=== PATIENT | female | born 1930 | race Caucasian/White ===

== ENCOUNTER 2016-08-23 14:48 | Inpatient (IN) | payer MEDICAID, OTHER ==
[~2016-08-23] VITALS: Ht 162.6 cm; Wt 65.4 kg
[2016-08-23] MEDS ORDERED: ASPI-556 PO (15:11)
[2016-08-23] MEDS ORDERED: AMLO-512 PO (15:11)
[2016-08-23] MEDS ORDERED: METF850T2 PO (15:11)
[2016-08-23] MEDS ORDERED: METO50 PO (15:11)
[2016-08-23] MEDS ORDERED: FOLI1TAB15 PO (15:11)
[2016-08-23] MEDS ORDERED: INSLAN SQ (15:11)
[2016-08-23] MEDS ORDERED: CLOP75 PO (15:11)
[2016-08-23] MEDS ORDERED: INSNOV SQ (15:11)
[2016-08-23] MEDS ORDERED: OMEP20 PO (15:11)
[2016-08-23] MEDS ORDERED: FURO20 PO (15:11)
[2016-08-23] MEDS ORDERED: BENZ-26 PO (15:11)
[2016-08-23] MEDS ORDERED: NITR.4 SL (15:11)
[2016-08-23] MEDS ORDERED: GLIP5 PO (15:11)
[2016-08-23] MEDS ORDERED: LOSA50TA37 PO (15:11)
[2016-08-23] MEDS ORDERED: SIMV-260 PO (15:11)
[2016-08-23 15:33] LABS: BASOPHILS % (AUTO) 0.5 % (0.0-2.0); EOSINOPHILS % (AUTO) 1.7 % (1.0-6.0); HEMATOCRIT 35.2 % (36-46); HEMOGLOBIN 11.9 g/dL (12.0-16.0); LYMPHOCYTES # (AUTO) 1.6 K/uL (1.0-4.8); MEAN CORPUSCULAR HEMOGLOBIN 32.8 pg (26.0-34.0); MEAN CORPUSCULAR HGB CONC 33.7 G/dL (31.0-37.0); MEAN CORPUSCULAR VOLUME 97 fL (80-100); MONOCYTES # (AUTO) 0.5 K/uL (0.1-1.0); NEUTROPHILS # (AUTO) 4.2 K/uL (1.8-7.7); NEUTROPHILS % (AUTO) 64.8 % (40.0-70.0); PLATELET COUNT (AUTO) 210 K/uL (150-450); RED BLOOD CELL COUNT(AUTO) 3.62 MIL/uL (4.00-5.20); RED CELL DISTRIBUTION WIDTH 13.8 % (11.5-14.5); WHITE BLOOD COUNT (AUTO) 6.4 K/uL (4.5-11.0)
[2016-08-23 15:51] LABS: CALCIUM, TOTAL 9.5 mg/dL (8.8-10.5); CREATININE 0.97 mg/dL (0.60-1.30); POTASSIUM 4.1 mmol/L (3.5-5.1)
[2016-08-23 15:56] LABS: ALBUMIN 3.7 g/dL (3.4-5.0); BILIRUBIN,TOTAL 0.3 mg/dL (0.1-1.0); THYROID STIMULATING HORMONE 3.42 uIU/mL (0.36-3.74); TOTAL PROTEIN, SERUM 7.4 g/dL (6.4-8.2)
[2016-08-23] MEDS ORDERED: ZOLPIDEM TARTRATE 5 MG TABLET PO PRN (16:45)
[2016-08-23] MEDS ORDERED: BISACODYL 10 MG RECTAL RECTAL SUPPOSITORY PR PRN (16:45)
[2016-08-23] MEDS ORDERED: ACETAMINOPHEN 325 MG TABLET PO PRN ×2 (16:45)
[2016-08-23] MEDS ORDERED: HYDROCODONE/ACETAMINOPHEN 5-325 MG TABLET PO PRN (16:45)
[2016-08-23] MEDS ORDERED: MAGNESIUM HYDROXIDE SUSPENSION 30 ML UDCUP PO PRN (16:45)
[2016-08-23] MEDS ORDERED: DEXTROSE 50%-WATER 25 GM/50 ML SYRINGE IVP PRN (16:45)
[2016-08-23] MEDS ORDERED: ONDANSETRON HCL 4 MG/2 ML VIAL IVP PRN (16:45)
[2016-08-23] MEDS ORDERED: MORPHINE SULFATE 2 MG/ML SYRINGE IVP PRN (16:45)
[2016-08-23 16:52] LABS: GLUCOSE,POINT OF CARE 191 MG/DL (70-110)
[2016-08-23 17:10] VITALS: BP 123/50
[2016-08-23] MEDS: MetFORMIN HCL 500 MG TABLET PO SCH (18:02)
[2016-08-23] MEDS: INSULIN ASPART 100 UNITS/ML SQ PRN ×2 (18:03→20:53)
[2016-08-23 19:17] VITALS: BP 119/51
[2016-08-23 20:02] LABS: GLUCOSE COMMENT 1 Received Meds; GLUCOSE,POINT OF CARE 155 MG/DL (70-110)
[2016-08-23] MEDS: SIMVASTATIN 20 MG TABLET PO SCH (20:12)
[2016-08-23] MEDS: DOCUSATE SODIUM 100 MG CAPSULE PO SCH (20:28)
[2016-08-23] MEDS: METOPROLOL TARTRATE 50 MG TABLET PO SCH (20:28)
[2016-08-23 23:31] VITALS: BP 112/48
[2016-08-23] MEDS: HEPARIN SODIUM,PORCINE 5,000 UNITS/ML VIAL SQ SCH (23:31)
[2016-08-24] VITALS (17 sets, daily range): BP systolic 105–149; BP diastolic 47–67
[2016-08-24 06:27] LABS: GLUCOSE COMMENT 1 Received Meds; GLUCOSE,POINT OF CARE 192 MG/DL (70-110)
[2016-08-24] MEDS ORDERED: LIDOCAINE HCL/PF 1% 30 ML VIAL ONE ×2 (07:28→07:34)
[2016-08-24] MEDS ORDERED: VANCOMYCIN HCL 1 GM/VIAL ONE (07:28)
[2016-08-24] MEDS ORDERED: SODIUM BICARBONATE 50 MEQ/50 ML VIAL ONE (07:28)
[2016-08-24] MEDS ORDERED: FentaNYL CITRATE-PF 100 MCG/2 ML VIAL ONE (07:49)
[2016-08-24] MEDS ORDERED: MIDAZOLAM HCL 2 MG/2 ML VIAL ONE (07:49)
[2016-08-24 07:57] LABS: GLUCOSE,POINT OF CARE 95 MG/DL (70-110)
[2016-08-24] MEDS ORDERED: SODIUM CHLORIDE 0.9% 500 ML IV ONE (07:58)
[2016-08-24] MEDS ORDERED: VANCOMYCIN HCL 0.5 GM in DEXTROSE 5%-WATER 100 ML IV ONE (07:58)
[2016-08-24] MEDS: MetFORMIN HCL 500 MG TABLET PO SCH ×2 (08:00→17:44)
[2016-08-24] MEDS: HEPARIN SODIUM,PORCINE 5,000 UNITS/ML VIAL SQ SCH ×3 (08:00→23:56)
[2016-08-24] MEDS ORDERED: LIDOCAINE 1% 30 ML/SOD BICARB 8.4% 4 ML SQ ONE ×2 (08:01→08:11)
[2016-08-24] MEDS ORDERED: FentaNYL CITRATE-PF 100 MCG/2 ML VIAL IVP ONE ×2 (08:02→08:08)
[2016-08-24] MEDS ORDERED: MIDAZOLAM HCL 2 MG/2 ML VIAL IVP ONE ×2 (08:02→08:08)
[2016-08-24 08:06] LABS: INR 1.1 (0.9-1.1); PROTHROMBIN TIME 11.1 SEC (9.4-11.6)
[2016-08-24] MEDS ORDERED: VANCOMYCIN HCL 1 GM/VIAL IRRIG ONE (08:18)
[2016-08-24] MEDS: ASPIRIN 81 MG EC TABLET PO SCH (09:00)
[2016-08-24] MEDS: CLOPIDOGREL BISULFATE 75 MG TABLET PO SCH (09:00)
[2016-08-24] MEDS: METOPROLOL TARTRATE 50 MG TABLET PO SCH ×2 (09:00→20:24)
[2016-08-24] MEDS: AmLODIPine BESYLATE 10 MG TABLET PO SCH (09:59)
[2016-08-24] MEDS: PANTOPRAZOLE SODIUM 40 MG DR TABLET PO SCH (09:59)
[2016-08-24] MEDS: FOLIC ACID 1 MG TABLET PO SCH (10:00)
[2016-08-24] MEDS: FUROSEMIDE 20 MG TABLET PO SCH (10:00)
[2016-08-24] MEDS: DOCUSATE SODIUM 100 MG CAPSULE PO SCH ×2 (10:00→20:25)
[2016-08-24] MEDS: LOSARTAN POTASSIUM 50 MG TABLET PO SCH (12:09)
[2016-08-24] MEDS: INSULIN ASPART 100 UNITS/ML SQ PRN ×3 (12:10→21:36)
[2016-08-24] MEDS ORDERED: VANCOMYCIN HCL 500 MG in DEXTROSE 5%-WATER 100 ML IV ONE (20:00)
[2016-08-24] MEDS: SIMVASTATIN 20 MG TABLET PO SCH (20:25)
[2016-08-24] MEDS ORDERED: SODIUM CHLORIDE 0.9% 250 ML IV ONE (21:25)
[2016-08-25 01:07] LABS: GLUCOSE COMMENT 1 Received Meds; GLUCOSE,POINT OF CARE 155 MG/DL (70-110)
[2016-08-25 01:11] LABS: GLUCOSE COMMENT 1 Received Meds; GLUCOSE,POINT OF CARE 207 MG/DL (70-110)
[2016-08-25 01:37] LABS: GLUCOSE COMMENT 1 Received Meds; GLUCOSE,POINT OF CARE 238 MG/DL (70-110)
[2016-08-25 04:33] VITALS: BP 119/42
[2016-08-25] MEDS: INSULIN ASPART 100 UNITS/ML SQ PRN ×2 (06:04→12:02)
[2016-08-25 07:13] VITALS: BP 115/40
[2016-08-25] MEDS: HEPARIN SODIUM,PORCINE 5,000 UNITS/ML VIAL SQ SCH ×3 (08:00→16:00)
[2016-08-25] MEDS: MetFORMIN HCL 500 MG TABLET PO SCH (08:14)
[2016-08-25] MEDS: DOCUSATE SODIUM 100 MG CAPSULE PO SCH (08:15)
[2016-08-25] MEDS: FOLIC ACID 1 MG TABLET PO SCH (08:16)
[2016-08-25] MEDS: FUROSEMIDE 20 MG TABLET PO SCH (08:16)
[2016-08-25] MEDS: CLOPIDOGREL BISULFATE 75 MG TABLET PO SCH (08:16)
[2016-08-25] MEDS: PANTOPRAZOLE SODIUM 40 MG DR TABLET PO SCH (08:16)
[2016-08-25] MEDS: ASPIRIN 81 MG EC TABLET PO SCH (08:16)
[2016-08-25] MEDS ORDERED: SULFAMETHOX/TRIMETH DS 800-160 MG/TABLET PO SCH (09:00)
[2016-08-25 09:04] LABS: APPEARANCE,URINE CLOUDY (CLEAR); GLUCOSE, URINE (UA) NEGATIVE (NEGATIVE); KETONES,URINE NEGATIVE (NEGATIVE); LEUKOCYTE ESTERASE ,URINE LARGE (NEGATIVE); OCCULT BLOOD,URINE LARGE (NEGATIVE); PROTEIN,URINE NEGATIVE (NEGATIVE)
[2016-08-25 09:07] LABS: ADD UA MICROSCOPIC YES
[2016-08-25 09:10] LABS: WBC,URINE >100 /HPF (0-5)
[2016-08-25 09:11] LABS: SQUAMOUS EPITHELIAL CELL,UR Few /LPF (None Seen)
[2016-08-25 10:13] VITALS: BP 123/57
[2016-08-25] MEDS: LOSARTAN POTASSIUM 50 MG TABLET PO SCH (10:14)
[2016-08-25] MEDS: METOPROLOL TARTRATE 50 MG TABLET PO SCH (10:14)
[2016-08-25 11:05] VITALS: BP 126/53
[2016-08-25] MEDS: AmLODIPine BESYLATE 10 MG TABLET PO SCH (11:35)
[2016-08-25 15:00] VITALS: BP 101/47
[2016-08-25] MEDS ORDERED: BACTDSB PO (15:47)
[2016-08-25 21:32] LABS: GLUCOSE,POINT OF CARE 143 MG/DL (70-110)
[2016-08-25 21:32] LABS: GLUCOSE,POINT OF CARE 251 MG/DL (70-110)
== END 2016-08-25 16:15 | disposition home or self-care (01) | DRG 176 ==
LOC: EMS 14:49 → 5S 16:19
PROVIDERS: ADMIT Internal Medicine; ATTEND Internal Medicine
PROC: 0JPT0PZ Removal of Cardiac Rhythm Related Device from Trunk Subcutaneous Tissue and Fascia, Open Approach (ICD-10-PCS; principal; 2016-08-24)
PROC: 0JH606Z Insertion of Pacemaker, Dual Chamber into Chest Subcutaneous Tissue and Fascia, Open Approach (ICD-10-PCS; 2016-08-24)
PROC: 5A1223Z Performance of Cardiac Pacing, Continuous (ICD-10-PCS; 2016-08-24)
DX: T82.897A Other specified complication of cardiac prosthetic devices, implants and grafts, initial encounter (principal); N39.0 Urinary tract infection, site not specified; I11.0 Hypertensive heart disease with heart failure; I50.9 Heart failure, unspecified; Z45.010 Encounter for checking and testing of cardiac pacemaker pulse generator [battery]; I44.0 Atrioventricular block, first degree; I44.7 Left bundle-branch block, unspecified; E11.9 Type 2 diabetes mellitus without complications; K21.9 Gastro-esophageal reflux disease without esophagitis; Z88.0 Allergy status to penicillin; Z79.01 Long term (current) use of anticoagulants; Z79.84 Long term (current) use of oral hypoglycemic drugs; Z79.4 Long term (current) use of insulin; Z79.899 Other long term (current) drug therapy; Z90.710 Acquired absence of both cervix and uterus; Y83.8 Other surgical procedures as the cause of abnormal reaction of the patient, or of later complication, without mention of misadventure at the time of the procedure; Y71.3 Surgical instruments, materials and cardiovascular devices (including sutures) associated with adverse incidents; Y92.89 Other specified places as the place of occurrence of the external cause
CPT/HCPCS: 33210; 33216; 33228; 76000; 82962; 84443; 87086; 88300; 93005; 99285; J1644; J2250; J3010; J3370; J3490; J7050; J7060

== ENCOUNTER 2017-07-10 11:04 | Inpatient (IN) | payer OTHER ==
[~2017-07-10] VITALS: Ht 142.2 cm; Wt 65.6 kg
[~2017-07-10 11:04] MED LIST: AMLO-512 PO; ASPI-556 PO; BACTDSB PO; BENZ-51 PO; CLOP75 PO; FOLI1TAB15 PO; FURO20 PO; GLIP5 PO; INSLAN SQ; INSNOV SQ; LOSA50TA37 PO; METF850T2 PO; METO50 PO; NITR.4 SL; OMEP20 PO; SIMV-260 PO
[2017-07-10] MEDS ORDERED: SACU1TAB PO (11:08)
[2017-07-10 11:17] LABS: GLUCOSE,POINT OF CARE 167 MG/DL (70-110)
[2017-07-10 11:53] LABS: BASOPHILS % (AUTO) 1.2 % (0.0-2.0); HEMATOCRIT 36.9 % (36-46); HEMOGLOBIN 12.8 g/dL (12.0-16.0); LYMPHOCYTES # (AUTO) 1.4 K/uL (1.0-4.8); LYMPHOCYTES % (AUTO) 26.9 % (22.0-44.0); MEAN CORPUSCULAR HEMOGLOBIN 32.8 pg (26.0-34.0); MEAN CORPUSCULAR HGB CONC 34.7 G/dL (31.0-37.0); MEAN CORPUSCULAR VOLUME 95 fL (80-100); MONOCYTES # (AUTO) 0.5 K/uL (0.1-1.0); MONOCYTES % (AUTO) 8.6 % (2.0-9.0); NEUTROPHILS # (AUTO) 3.3 K/uL (1.8-7.7); NEUTROPHILS % (AUTO) 62.3 % (40.0-70.0); PLATELET COUNT (AUTO) 248 K/uL (150-450); RED CELL DISTRIBUTION WIDTH 13.9 % (11.5-14.5)
[2017-07-10 12:05] LABS: PROTHROMBIN TIME 10.5 SEC (9.4-11.6)
[2017-07-10 12:11] LABS: ANION GAP 10 mmol/L (8-16); CALCIUM, TOTAL 9.9 mg/dL (8.8-10.5); CARBON DIOXIDE 27 mmol/L (22-29); CHLORIDE 101 mmol/L (98-107); CREATININE 0.81 mg/dL (0.60-1.30); GLOMERULAR FILTR. RATE CALC > 60 mL/min (>60); GLUCOSE,RANDOM 159 mg/dL (70-110); POTASSIUM 4.1 mmol/L (3.5-5.1); SODIUM SERUM 138 mmol/L (136-145); UREA NITROGEN, BLOOD 22 mg/dL (7-18)
[2017-07-10 12:16] LABS: ALANINE AMINOTRANSFERASE 20 U/L (12-78); ALBUMIN 3.8 g/dL (3.4-5.0); ALKALINE PHOSPHATASE 82 U/L (46-116); ASPARTATE AMINOTRANSFERASE 15 U/L (15-37); BILIRUBIN,TOTAL 0.3 mg/dL (0.1-1.0); CREATINE KINASE, TOTAL 59 U/L (26-192); TOTAL PROTEIN, SERUM 7.8 g/dL (6.4-8.2)
[2017-07-10 12:46] LABS: B-TYPE NATRIURETIC PEPTIDE 239 pg/mL (0-100)
[2017-07-10] MEDS ORDERED: NITROGLYCERIN 2% (1 GM=INCH) PACKET TP ONE (13:15)
[2017-07-10] MEDS ORDERED: ASPIRIN 81 MG CHEWABLE TABLET PO ONE (13:15)
[2017-07-10 13:51] LABS: APPEARANCE,URINE CLEAR (CLEAR); BILIRUBIN,URINE NEGATIVE (NEGATIVE); GLUCOSE, URINE (UA) NEGATIVE (NEGATIVE); KETONES,URINE NEGATIVE (NEGATIVE); LEUKOCYTE ESTERASE ,URINE NEGATIVE (NEGATIVE); NITRATE,URINE NEGATIVE (NEGATIVE); OCCULT BLOOD,URINE NEGATIVE (NEGATIVE); PROTEIN,URINE NEGATIVE (NEGATIVE); UROBILINOGEN,URINE 0.2 mg/dL (<=1.0)
[2017-07-10] MEDS ORDERED: METF500T4 PO (14:30)
[2017-07-10] MEDS ORDERED: 0.9% SODIUM CHLORIDE 10 ML SYRINGE IVP PRN ×2 (14:30→20:15)
[2017-07-10] MEDS ORDERED: ACETAMINOPHEN 325 MG TABLET PO PRN (14:30)
[2017-07-10] MEDS ORDERED: ALBUTEROL SULFATE 2.5 MG/0.5 ML NEB SOLUTION NEB PRN (20:15)
[2017-07-10] MEDS ORDERED: ZOLPIDEM TARTRATE 5 MG TABLET PO PRN (20:15)
[2017-07-10] MEDS: ALBUTEROL SULFATE 2.5 MG/0.5 ML NEB SOLUTION NEB SCH (20:15)
[2017-07-10] MEDS: IPRATROPIUM BROMIDE 0.5 MG/2.5 ML NEB SOLUTION NEB SCH (20:15)
[2017-07-10] MEDS ORDERED: IPRATROPIUM BROMIDE 0.5 MG/2.5 ML NEB SOLUTION NEB PRN (20:15)
[2017-07-10] MEDS ORDERED: FUROSEMIDE 20 MG TABLET PO SCH (20:15)
[2017-07-10] MEDS ORDERED: NITROGLYCERIN 0.4 MG SUBLINGUAL TABLET #25 SL PRN (20:15)
[2017-07-10] MEDS ORDERED: ONDANSETRON HCL 4 MG/2 ML VIAL IVP PRN (20:15)
[2017-07-10] MEDS ORDERED: DEXTROSE 50%-WATER 25 GM/50 ML SYRINGE IVP PRN (20:15)
[2017-07-10 20:53] VITALS: BP 156/64
[2017-07-10] MEDS ORDERED: SIMVASTATIN 20 MG TABLET PO SCH (21:00)
[2017-07-10 21:25] LABS: CHOL/HDL RATIO 3.8 (3.9-5.7); THYROID STIMULATING HORMONE 2.45 uIU/mL (0.36-3.74)
[2017-07-10] MEDS: PANTOPRAZOLE SODIUM 40 MG/VIAL IVP SCH (21:57)
[2017-07-10 21:58] LABS: HEMOGLOBIN A1C 7.5 % (4.5-6.2)
[2017-07-10] MEDS: CLOPIDOGREL BISULFATE 75 MG TABLET PO SCH (21:58)
[2017-07-10] MEDS: FOLIC ACID 1 MG TABLET PO SCH (21:58)
[2017-07-10] MEDS: ASPIRIN 81 MG EC TABLET PO SCH (21:58)
[2017-07-10] MEDS: METOPROLOL TARTRATE 50 MG TABLET PO SCH (21:58)
[2017-07-10] MEDS: LOSARTAN POTASSIUM 50 MG TABLET PO SCH (21:58)
[2017-07-10] MEDS: HEPARIN SODIUM,PORCINE 5,000 UNITS/ML VIAL SQ SCH (21:58)
[2017-07-10] MEDS: SACUBITRIL/VALSARTAN 24-26 MG TABLET PO SCH (21:59)
[2017-07-10] MEDS: INSULIN LISPRO 100 UNITS/ML SQ PRN (22:09)
[2017-07-11 00:19] VITALS: BP 110/48
[2017-07-11 01:38] LABS: GLUCOMETER DEV NAME(LOC) 5N 1P; GLUCOSE,POINT OF CARE 156 MG/DL (70-110)
[2017-07-11] MEDS: ALBUTEROL SULFATE 2.5 MG/0.5 ML NEB SOLUTION NEB SCH ×3 (02:50→14:03)
[2017-07-11] MEDS: IPRATROPIUM BROMIDE 0.5 MG/2.5 ML NEB SOLUTION NEB SCH ×3 (02:50→14:03)
[2017-07-11 04:46] VITALS: BP 126/67
[2017-07-11 06:03] LABS: BASOPHILS % (AUTO) 0.8 % (0.0-2.0); EOSINOPHILS % (AUTO) 1.4 % (1.0-6.0); HEMATOCRIT 34.6 % (36-46); HEMOGLOBIN 12.1 g/dL (12.0-16.0); LYMPHOCYTES # (AUTO) 1.3 K/uL (1.0-4.8); LYMPHOCYTES % (AUTO) 28.1 % (22.0-44.0); MEAN CORPUSCULAR HEMOGLOBIN 33.1 pg (26.0-34.0); MEAN CORPUSCULAR VOLUME 94 fL (80-100); MONOCYTES # (AUTO) 0.5 K/uL (0.1-1.0); MONOCYTES % (AUTO) 10.8 % (2.0-9.0); NEUTROPHILS # (AUTO) 2.8 K/uL (1.8-7.7); NEUTROPHILS % (AUTO) 58.9 % (40.0-70.0); PLATELET COUNT (AUTO) 228 K/uL (150-450); RED BLOOD CELL COUNT(AUTO) 3.67 MIL/uL (4.00-5.20); RED CELL DISTRIBUTION WIDTH 13.7 % (11.5-14.5)
[2017-07-11] MEDS: INSULIN LISPRO 100 UNITS/ML SQ PRN (06:08)
[2017-07-11 06:22] LABS: ALANINE AMINOTRANSFERASE 18 U/L (12-78); ALBUMIN 3.5 g/dL (3.4-5.0); ALKALINE PHOSPHATASE 73 U/L (46-116); ANION GAP 9 mmol/L (8-16); ASPARTATE AMINOTRANSFERASE 12 U/L (15-37); BILIRUBIN,TOTAL 0.3 mg/dL (0.1-1.0); CALCIUM, TOTAL 9.1 mg/dL (8.8-10.5); CARBON DIOXIDE 30 mmol/L (22-29); CHLORIDE 102 mmol/L (98-107); CREATININE 0.73 mg/dL (0.60-1.30); GLOMERULAR FILTR. RATE CALC > 60 mL/min (>60); GLUCOSE,RANDOM 151 mg/dL (70-110); POTASSIUM 3.2 mmol/L (3.5-5.1); SODIUM SERUM 141 mmol/L (136-145); TOTAL PROTEIN, SERUM 7.1 g/dL (6.4-8.2); UREA NITROGEN, BLOOD 21 mg/dL (7-18)
[2017-07-11] MEDS ORDERED: GlipiZIDE 5 MG TABLET PO SCH (06:30)
[2017-07-11] MEDS ORDERED: MetFORMIN HCL 500 MG TABLET PO SCH (08:00)
[2017-07-11] MEDS ORDERED: POTASSIUM CHL 10 MEQ/WATER 50 ML IV PRN (08:00)
[2017-07-11] MEDS ORDERED: POTASSIUM CHLORIDE 20 MEQ ER TABLET PO PRN (08:00)
[2017-07-11] MEDS: METOPROLOL TARTRATE 50 MG TABLET PO SCH (08:16)
[2017-07-11] MEDS: SACUBITRIL/VALSARTAN 24-26 MG TABLET PO SCH (08:16)
[2017-07-11] MEDS: FOLIC ACID 1 MG TABLET PO SCH (08:16)
[2017-07-11] MEDS: LOSARTAN POTASSIUM 50 MG TABLET PO SCH (08:17)
[2017-07-11] MEDS: ASPIRIN 81 MG EC TABLET PO SCH (08:18)
[2017-07-11] MEDS: CLOPIDOGREL BISULFATE 75 MG TABLET PO SCH (08:18)
[2017-07-11] MEDS: PANTOPRAZOLE SODIUM 40 MG/VIAL IVP SCH (08:19)
[2017-07-11] MEDS: HEPARIN SODIUM,PORCINE 5,000 UNITS/ML VIAL SQ SCH (08:20)
[2017-07-11 08:29] VITALS: BP 150/54
[2017-07-11 08:53] LABS: GLUCOMETER DEV NAME(LOC) 5N 1P; GLUCOSE,POINT OF CARE 155 MG/DL (70-110)
[2017-07-11] MEDS ORDERED: FUROSEMIDE 20 MG/2 ML VIAL IVP SCH (09:00)
[2017-07-11] MEDS ORDERED: AmLODIPine BESYLATE 10 MG TABLET PO SCH (09:00)
[2017-07-11 11:15] VITALS: BP 112/49
[2017-07-11 15:37] VITALS: BP 112/53
[2017-07-11 19:47] LABS: GLUCOMETER DEV NAME(LOC) 5S 1M; GLUCOSE,POINT OF CARE 139 MG/DL (70-110)
== END 2017-07-11 17:00 | disposition home or self-care (01) | DRG 194 ==
LOC: EMS 11:05 → 5S 18:56
PROVIDERS: ADMIT Internal Medicine; ATTEND Internal Medicine
DX: I11.0 Hypertensive heart disease with heart failure (principal); I49.5 Sick sinus syndrome; E11.9 Type 2 diabetes mellitus without complications; E78.00 Pure hypercholesterolemia, unspecified; I25.10 Atherosclerotic heart disease of native coronary artery without angina pectoris; K21.9 Gastro-esophageal reflux disease without esophagitis; I50.23 Acute on chronic systolic (congestive) heart failure; Z90.710 Acquired absence of both cervix and uterus; Z95.0 Presence of cardiac pacemaker; Z88.0 Allergy status to penicillin; Z79.4 Long term (current) use of insulin
CPT/HCPCS: 82962; 83036; 83735; 84132; 84443; 93005; 93306; 93925; 94640; C9113; J1644; J1940

== ENCOUNTER → 2018-02-05 | Outpatient (CLI) | payer OTHER ==
[~2018-02-05] VITALS: Ht 137.2 cm; Wt 66.3 kg
[~2018-02-05] MED LIST changes: +ACET-66 PO; -BACTDSB PO; +CALC-789 PO; +LOSA50TA25 PO; -LOSA50TA37 PO; +METF-960 PO; -METF850T2 PO; +POTA8TAB7 PO; +SACU1TAB PO; +SACU1TAB7 PO
[2018-02-05 10:19] VITALS: BP 170/63
== END | disposition home or self-care (01) ==
LOC: HBOWC 09:16
PROVIDERS: ATTEND Emergency Medicine
DX: S39.82XD Other specified injuries of lower back, subsequent encounter (principal); I11.0 Hypertensive heart disease with heart failure; I50.23 Acute on chronic systolic (congestive) heart failure; K21.9 Gastro-esophageal reflux disease without esophagitis; E78.00 Pure hypercholesterolemia, unspecified; I25.10 Atherosclerotic heart disease of native coronary artery without angina pectoris; Z90.710 Acquired absence of both cervix and uterus; Z79.4 Long term (current) use of insulin; X58.XXXD Exposure to other specified factors, subsequent encounter

== ENCOUNTER → 2018-02-19 | Outpatient (CLI) | payer OTHER ==
[~2018-02-19] MED LIST changes: -BENZ-51 PO; -LOSA50TA25 PO; -SACU1TAB PO
[2018-02-19 09:49] VITALS: BP 135/58
== END | disposition home or self-care (01) ==
LOC: HBOWC 09:32
PROVIDERS: ATTEND Emergency Medicine
DX: S31.000D Unspecified open wound of lower back and pelvis without penetration into retroperitoneum, subsequent encounter (principal); L82.1 Other seborrheic keratosis; I11.0 Hypertensive heart disease with heart failure; I50.23 Acute on chronic systolic (congestive) heart failure; I25.10 Atherosclerotic heart disease of native coronary artery without angina pectoris; K21.9 Gastro-esophageal reflux disease without esophagitis; Z79.4 Long term (current) use of insulin; E78.00 Pure hypercholesterolemia, unspecified; Z90.710 Acquired absence of both cervix and uterus; X58.XXXD Exposure to other specified factors, subsequent encounter

== ENCOUNTER 2018-02-24 13:17 | Emergency (ER) | payer OTHER ==
[~2018-02-24] VITALS: Ht 152.4 cm; Wt 65.9 kg
[2018-02-24] MEDS ORDERED: LIDOCAINE 5% TRANSDERMAL PATCH TD ONE (15:00)
[2018-02-24] MEDS ORDERED: ACETAMINOPHEN 500 MG TABLET PO ONE (15:00)
[2018-02-24 17:14] VITALS: BP 126/89
== END 2018-02-24 17:15 | disposition home or self-care (01) ==
LOC: EMS 13:18
DX: S22.31XA Fracture of one rib, right side, initial encounter for closed fracture (principal); E11.9 Type 2 diabetes mellitus without complications; I10 Essential (primary) hypertension; Z95.0 Presence of cardiac pacemaker; Z88.0 Allergy status to penicillin; Z79.84 Long term (current) use of oral hypoglycemic drugs; Z79.4 Long term (current) use of insulin; Z79.82 Long term (current) use of aspirin; Z90.710 Acquired absence of both cervix and uterus; W07.XXXA Fall from chair, initial encounter; Y93.89 Activity, other specified; Y92.89 Other specified places as the place of occurrence of the external cause; Y99.8 Other external cause status
CPT/HCPCS: 71101

== ENCOUNTER 2019-09-16 16:37 | Emergency (ER) | payer OTHER ==
[~2019-09-16] VITALS: Ht 154.9 cm; Wt 65.9 kg
[~2019-09-16 16:37] MED LIST changes: +ACET-3207 PO; -ACET-66 PO; -AMLO-512 PO; -CALC-789 PO; -CLOP75 PO; +ENOX30DI5 SQ; +FOLI-130 PO; -FOLI1TAB15 PO; -FURO20 PO; -GLIP5 PO; +HYDR-4119 PO; -INSNOV SQ; -METO50 PO; -NITR.4 SL; -OMEP20 PO; +PANT-31 PO; -SACU1TAB7 PO; -SIMV-260 PO
[2019-09-16] MEDS ORDERED: CLOP75TA32 PO (16:51)
[2019-09-16] MEDS ORDERED: SACU1TAB7 PO (16:51)
[2019-09-16] MEDS ORDERED: FURO20TA4 PO (16:51)
[2019-09-16] MEDS ORDERED: SITA50 PO (16:51)
[2019-09-16 18:33] LABS: BASOPHILS % (AUTO) 1.1 % (0.0-2.0); EOSINOPHILS % (AUTO) 2.2 % (1.0-6.0); HEMATOCRIT 37.4 % (36-46); HEMOGLOBIN 13.3 g/dL (12.0-16.0); LYMPHOCYTES # (AUTO) 1.4 K/uL (1.0-4.8); LYMPHOCYTES % (AUTO) 17.2 % (22.0-44.0); MEAN CORPUSCULAR HEMOGLOBIN 35.7 pg (26.0-34.0); MEAN CORPUSCULAR HGB CONC 35.7 G/dL (31.0-37.0); MEAN CORPUSCULAR VOLUME 100 fL (80-100); MONOCYTES # (AUTO) 0.6 K/uL (0.1-1.0); MONOCYTES % (AUTO) 7.8 % (2.0-9.0); NEUTROPHILS # (AUTO) 5.6 K/uL (1.8-7.7); NEUTROPHILS % (AUTO) 71.7 % (40.0-70.0); PLATELET COUNT (AUTO) 264 K/uL (150-450); RED BLOOD CELL COUNT(AUTO) 3.74 MIL/uL (4.00-5.20); RED CELL DISTRIBUTION WIDTH 14.9 % (11.5-14.5)
[2019-09-16 19:06] LABS: CREATININE 0.94 mg/dL (0.60-1.30); POTASSIUM 3.8 mmol/L (3.5-5.1)
[2019-09-16 19:23] LABS: ALBUMIN 3.5 g/dL (3.4-5.0); BILIRUBIN,TOTAL 0.3 mg/dL (0.1-1.0); TOTAL PROTEIN, SERUM 7.8 g/dL (6.4-8.2)
[2019-09-16 20:00] VITALS: BP 121/59
== END 2019-09-16 20:12 | disposition home or self-care (01) ==
LOC: EMS 16:37
DX: R03.1 Nonspecific low blood-pressure reading (principal); E11.9 Type 2 diabetes mellitus without complications; Z79.4 Long term (current) use of insulin; Z79.899 Other long term (current) drug therapy
CPT/HCPCS: 93005

== ENCOUNTER 2020-01-21 09:08 | Emergency (ER) | payer OTHER ==
[~2020-01-21] VITALS: Ht 165.1 cm; Wt 63.6 kg
[~2020-01-21 09:08] MED LIST changes: +CLOP75TA32 PO; +FURO20TA4 PO; +SACU1TAB7 PO; +SITA50 PO
[2020-01-21 10:04] LABS: GLUCOSE,POINT OF CARE 150 MG/DL (70-110)
[2020-01-21] MEDS ORDERED: ACETAMINOPHEN 500 MG TABLET PO ONE (10:30)
[2020-01-21] MEDS ORDERED: IOVERSOL 350 MG/ML 100 ML VIAL ONE (11:06)
[2020-01-21] MEDS ORDERED: SODIUM CHLORIDE 0.9% 0 ML ONE (11:06)
[2020-01-21 12:43] VITALS: BP 141/64
== END 2020-01-21 14:04 | disposition home or self-care (01) ==
LOC: EMS 09:23
DX: S22.42XA Multiple fractures of ribs, left side, initial encounter for closed fracture (principal); E11.9 Type 2 diabetes mellitus without complications; I10 Essential (primary) hypertension; W19.XXXA Unspecified fall, initial encounter; Y93.89 Activity, other specified; Y92.89 Other specified places as the place of occurrence of the external cause; Y99.8 Other external cause status
CPT/HCPCS: 70450; 71250; 72125; 82962; 93005; 99285; G0238; J7050

== ENCOUNTER 2020-05-11 09:02 | Emergency (ER) | payer OTHER ==
[~2020-05-11] VITALS: Ht 152.4 cm; Wt 68.2 kg
[~2020-05-11 09:02] MED LIST changes: -ENOX30DI5 SQ
[2020-05-11] MEDS ORDERED: ACETAMINOPHEN 500 MG TABLET PO ONE (10:00)
[2020-05-11 10:42] VITALS: BP 148/68
== END 2020-05-11 11:56 | disposition home or self-care (01) ==
LOC: EMS 09:08
DX: S80.01XA Contusion of right knee, initial encounter (principal); S80.02XA Contusion of left knee, initial encounter; S00.03XA Contusion of scalp, initial encounter; E11.9 Type 2 diabetes mellitus without complications; I10 Essential (primary) hypertension; Z95.0 Presence of cardiac pacemaker; Z90.710 Acquired absence of both cervix and uterus; Z79.4 Long term (current) use of insulin; Z79.82 Long term (current) use of aspirin; Z88.0 Allergy status to penicillin; W01.0XXA Fall on same level from slipping, tripping and stumbling without subsequent striking against object, initial encounter; Y93.89 Activity, other specified; Y92.89 Other specified places as the place of occurrence of the external cause; Y99.8 Other external cause status
CPT/HCPCS: 70450; 99284

== ENCOUNTER 2021-12-02 15:29 | Emergency (ER) | payer OTHER ==
[~2021-12-02] VITALS: Ht 144.8 cm; Wt 72.7 kg
[~2021-12-02 15:29] MED LIST changes: +METF-1211 PO; -METF-960 PO
[2021-12-02] MEDS ORDERED: DULA0.75 SQ (16:43)
[2021-12-02] MEDS ORDERED: INSNOV SQ (16:43)
[2021-12-02] MEDS ORDERED: OMEP20 PO (16:43)
[2021-12-02] MEDS ORDERED: LEVO75 PO (16:43)
[2021-12-02] MEDS ORDERED: METO50 PO (16:43)
[2021-12-02] MEDS ORDERED: MIRT30 PO (16:43)
[2021-12-02 19:28] LABS: BASOPHILS % (AUTO) 0.8 % (0.0-2.0); EOSINOPHILS % (AUTO) 1.1 % (1.0-6.0); HEMOGLOBIN 11.5 g/dL (12.0-16.0); LYMPHOCYTES # (AUTO) 1.7 K/uL (1.0-4.8); LYMPHOCYTES % (AUTO) 18.9 % (22.0-44.0); MEAN CORPUSCULAR HEMOGLOBIN 31.5 pg (26.0-34.0); MEAN CORPUSCULAR VOLUME 95 fL (80-100); MONOCYTES # (AUTO) 0.5 K/uL (0.1-1.0); MONOCYTES % (AUTO) 5.9 % (2.0-9.0); NEUTROPHILS # (AUTO) 6.5 K/uL (1.8-7.7); NEUTROPHILS % (AUTO) 73.3 % (40.0-70.0); PLATELET COUNT (AUTO) 286 K/uL (150-450); RED BLOOD CELL COUNT(AUTO) 3.67 MIL/uL (4.00-5.20)
[2021-12-02 19:36] LABS: ANION GAP 7 mmol/L (8-16); CALCIUM, TOTAL 9.2 mg/dL (8.8-10.5); CARBON DIOXIDE 26 mmol/L (22-29); CHLORIDE 95 mmol/L (98-107); CREATININE 0.74 mg/dL (0.60-1.30); GLUCOSE,RANDOM 121 mg/dL (70-110); POTASSIUM 4.2 mmol/L (3.5-5.1); SODIUM SERUM 128 mmol/L (136-145); UREA NITROGEN, BLOOD 12 mg/dL (7-18)
[2021-12-02 19:37] LABS: GLOMERULAR FILTR. RATE CALC > 60 mL/min (>60)
[2021-12-02 19:43] LABS: ALANINE AMINOTRANSFERASE 16 U/L (12-78); ALBUMIN 3.9 g/dL (3.4-5.0); ALKALINE PHOSPHATASE 115 U/L (46-116); ASPARTATE AMINOTRANSFERASE 16 U/L (15-37); BILIRUBIN,TOTAL 0.3 mg/dL (0.1-1.0); LIPASE 524 U/L (73-393); TOTAL PROTEIN, SERUM 7.5 g/dL (6.4-8.2)
[2021-12-02] MEDS ORDERED: ACETAMINOPHEN 325 MG TABLET PO ONE (19:45)
[2021-12-02] MEDS ORDERED: POTA8TAB71 PO (19:51)
[2021-12-02] MEDS ORDERED: ATOR40TA71 PO (19:51)
[2021-12-02] MEDS ORDERED: SACU1TAB PO (19:51)
[2021-12-02] MEDS ORDERED: DULA3PEN SQ (19:51)
[2021-12-02 20:35] LABS: APPEARANCE,URINE CLEAR (CLEAR); BILIRUBIN,URINE NEGATIVE (NEGATIVE); GLUCOSE, URINE (UA) NEGATIVE (NEGATIVE); KETONES,URINE NEGATIVE (NEGATIVE); LEUKOCYTE ESTERASE ,URINE NEGATIVE (NEGATIVE); NITRATE,URINE NEGATIVE (NEGATIVE); OCCULT BLOOD,URINE NEGATIVE (NEGATIVE); PROTEIN,URINE NEGATIVE (NEGATIVE); UROBILINOGEN,URINE <=1.0 mg/dL (<=1.0)
[2021-12-03 00:30] VITALS: BP 135/76
== END 2021-12-03 05:24 | disposition home or self-care (01) ==
LOC: EMS 15:33
DX: S92.351A Displaced fracture of fifth metatarsal bone, right foot, initial encounter for closed fracture (principal); F03.90 Unspecified dementia, unspecified severity, without behavioral disturbance, psychotic disturbance, mood disturbance, and anxiety; F32.A Depression, unspecified; E11.9 Type 2 diabetes mellitus without complications; I10 Essential (primary) hypertension; R63.0 Anorexia; Z87.39 Personal history of other diseases of the musculoskeletal system and connective tissue; Z90.710 Acquired absence of both cervix and uterus; Z96.89 Presence of other specified functional implants; Z98.890 Other specified postprocedural states; Z88.0 Allergy status to penicillin; W19.XXXA Unspecified fall, initial encounter; Y93.89 Activity, other specified; Y92.89 Other specified places as the place of occurrence of the external cause; Y99.8 Other external cause status
CPT/HCPCS: 70450; 71045; 72125; 80053; 81003; 82962; 83690; 85025; 99285; 36415-L1; 36415-TC